=== PATIENT | female | born 1945 | race Hispanic/Latino ===

== ENCOUNTER 2017-12-13 20:05 | Observation (INO) | payer MEDICARE ==
[~2017-12-13] VITALS: Ht 147.3 cm; Wt 75.8 kg
[~2017-12-13 20:05] MED LIST: ASPIRIN325 MG PO; CLOPIDOGREL75 MG PO; DESFLURANE 240 ML BTL INH ONE; DEXAMETHASONE SOD PHOS INJ 4 MG/ML VIAL ONE; EPHEDRINE SULFATE INJ 50 MG/10 ML SYR ONE; LIDOCAINE HCL 2% LOCAL INJ 5 ML SDV VIAL INJ ONE; LISINOPRIL20 MG PO; METOPROLOL SUCC50 MG PO; METOPROLOL TARTRATE INJ 1 MG/ML VIAL ONE; ONDANSETRON HCL INJ 2 MG/ML VIAL ONE; PANTOPRAZOLE SO40 MG PO; PRAVASTATIN SOD20 MG PO; PROPOFOL IV EMULSION 10 MG/ML 20 ML VIAL ONE; Z.0.ALLEGRA ALLERG18; Z.0.COLCRYS0.6 MG PO; Z.0.GEMFIBROZIL600 M; Z.0.LISINOPRIL40 MG; Z.0.NORVASC10 MG PO
--- OUTSIDE RECORDS SUMMARY | 2017-12-13 20:08 | XMS REPORT ---
[facility] Address Unknown Phone Unavailable Care Team Providers Care Garbage Stoker Name Role Phone JULIANNE VALENZUELA Unavailable Unavailable Problems This patient has no known problems. Allergies, Adverse Reactions, Alerts This patient has no known allergies or adverse reactions. Medications This patient has no known medications. Results Test Description Test Time Test Comments Text Results Atomic Results Result Comments CHEST 2 VIEWS [place] [address] Patient Name: MYLENE SHEPPARD MR #: [id number] : 1945 Age/Sex: 72/F Req # : [id number] Adm Physician: Ordered by: JULIANNE VALENZUELA MD Report #: [id number] Location: [place] Room/Bed: Procedure: [id number] DX/CHEST 2 VIEWS Exam Date: 12/12/17 Exam Time: 1115 REPORT STATUS: Signed PROCEDURE: Frontal and lateral views of the chest. COMPARISON: DX, CHEST SINGLE, 07/28/2011, 11:44. DX, CHEST XRAY LINE PLACEMENT, 09/04/2015, 10:20. INDICATIONS: PREOP - RIGHT BREAST FINDINGS: Lines/tubes: None. Lungs: The lungs are well inflated. 2-3 mm nodular density in the right midlung in the frontal view, which was not seen on prior exams. There is no evidence of pneumonia or pulmonary edema. Pleura: Blunting of the left posterior costophrenic sulcus. Heart and mediastinum: The cardiac silhouette is unremarkable. Pulmonary vasculature is normal. Bones: No acute bony abnormality. IMPRESSION: 1. No acute cardiopulmonary abnormalities. 2. 2-3 mm nodular density in the right upper lung. This may represent a calcified granuloma or pulmonary nodule. Recommend chest x-ray, PA and lateral in 3-6 months to document stability. Alternatively, a chest CT may be obtained for further evaluation. 3. Blunting of the left posterior costophrenic sulcus, which may reflect small volume pleural effusion versus pleural thickening. Cathleen Rubin M.D. Dictated by: Cathleen Rubin M.D. on at 12:00 Electronically approved by: Cathleen Rubin M.D. on 12/12/2017 at 12:00 Dictated By: CATHLEEN RUBIN MD 1200 Transcribed By: RALPH on 12/12/17 1200 COPY TO: JULIANNE VALENZUELA MD
[2017-12-13] MEDS ORDERED: ASPIRIN 81 MG CHEW TAB PO ONE (20:15)
[2017-12-13 20:43] LABS: BASOPHILS % 0.5 % (0.0-1.0); EOSINOPHILS # (AUTO) 0.4 (0.0-0.4); EOSINOPHILS % 4.7 % (0.0-6.0); HEMATOCRIT 34.6 % (34.2-44.1); HEMOGLOBIN 10.8 g/dL (12.0-16.0); LYMPHOCYTES # (AUTO) 2.2 (1.0-3.2); LYMPHOCYTES % 27.7 % (18.0-39.1); MEAN CORPUSCULAR HEMOGLOBIN 29.1 pg (28-32); MEAN CORPUSCULAR HGB CONC 31.2 g/dL (31-35); MEAN CORPUSCULAR VOLUME 93.3 fL (81-99); MONOCYTES # (AUTO) 0.7 (0.2-0.8); MONOCYTES % 8.3 % (4.4-11.3); NEUTROPHILS # (AUTO) 4.7 (2.1-6.9); NEUTROPHILS % 58.6 % (38.7-80.0); PLATELET COUNT 160 x10e3/uL (140-360); RED BLOOD COUNT 3.71 x10e6/uL (3.6-5.1); RED CELL DISTRIBUTION WIDTH 15.4 % (11.7-14.4)
[2017-12-13 21:00] LABS: CREATINE KINASE 128 IU/L (29-168)
[2017-12-13 21:02] LABS: ALBUMIN 4.1 g/dL (3.5-5.0); ALBUMIN/GLOBULIN RATIO 1.3 (0.8-2.0); ANION GAP 16.4 mmol/L (8-16); CALCIUM 9.3 mg/dL (8.4-10.2); CREATININE, SERUM 1.69 mg/dL (0.57-1.11); POTASSIUM 5.4 mmol/L (3.5-5.1)
[2017-12-13] MEDS: SODIUM CHLORIDE 0.9% 1000ML 1,000 ML IV SCH (21:56)
[2017-12-13 22:49] VITALS: BP 140/60
[2017-12-13 23:38] VITALS: BP 140/60
[2017-12-13 23:48] VITALS: BP 140/60
[2017-12-14] VITALS (8 sets, daily range): BP systolic 118–159; BP diastolic 57–75
[2017-12-14] MEDS: SODIUM CHLORIDE 0.9% 1000ML 1,000 ML IV SCH (06:27)
[2017-12-14 06:48] LABS: BASOPHILS % 0.4 % (0.0-1.0); EOSINOPHILS # (AUTO) 0.2 (0.0-0.4); EOSINOPHILS % 3.9 % (0.0-6.0); HEMATOCRIT 32.7 % (34.2-44.1); HEMOGLOBIN 10.3 g/dL (12.0-16.0); LYMPHOCYTES # (AUTO) 1.8 (1.0-3.2); LYMPHOCYTES % 33.9 % (18.0-39.1); MEAN CORPUSCULAR HEMOGLOBIN 29.8 pg (28-32); MEAN CORPUSCULAR HGB CONC 31.5 g/dL (31-35); MEAN CORPUSCULAR VOLUME 94.5 fL (81-99); MONOCYTES # (AUTO) 0.5 (0.2-0.8); MONOCYTES % 9.6 % (4.4-11.3); NEUTROPHILS # (AUTO) 2.8 (2.1-6.9); NEUTROPHILS % 51.8 % (38.7-80.0); PLATELET COUNT 145 x10e3/uL (140-360); RED BLOOD COUNT 3.46 x10e6/uL (3.6-5.1); RED CELL DISTRIBUTION WIDTH 15.4 % (11.7-14.4)
[2017-12-14 07:31] LABS: ALBUMIN 3.6 g/dL (3.5-5.0); ALBUMIN/GLOBULIN RATIO 1.3 (0.8-2.0); ANION GAP 13.9 mmol/L (8-16); CALCIUM 9.3 mg/dL (8.4-10.2); CREATININE, SERUM 1.24 mg/dL (0.57-1.11); POTASSIUM 5.9 mmol/L (3.5-5.1)
[2017-12-14] MEDS ORDERED: AMLODIPINE BESYLATE 10 MG TAB PO SCH (09:00)
[2017-12-14] MEDS ORDERED: METOPROLOL TARTRATE 50 MG TAB PO SCH ×2 (09:00→17:00)
[2017-12-14] MEDS ORDERED: SOD POLYSTYRENE SULFONATE SUSP 15 GM/60 ML BTL PO STA (09:52)
[2017-12-14] MEDS ORDERED: SODIUM CHLORIDE 0.45% 1,000 ML IV ONE (10:00)
[2017-12-14] MEDS ORDERED: METOPROLOL TART50 MG PO (10:03)
[2017-12-14 10:12] LABS: CHOL/HDL RATIO 3.2 (3.0-3.6)
--- NOTE | 2017-12-14 10:37 | History and Physical ---
PRIMARY CARE PHYSICIAN: Dr. Randolph ONCOLOGIST: Dr. Ames SURGEON: Dr. Butler CHIEF COMPLAINT: Elevated potassium. HISTORY OF PRESENT ILLNESS: This is a 72-year-old woman recently diagnosed with right-sided breast cancer in October 2017, now planning for resection of the lesion, but sent to the hospital yesterday due to elevated potassium. In the emergency room, the potassium level was 5.4. This morning, it has increased to 5.9. The patient received fluids overnight. Today, the potassium is 5.9. The patient is admitted for further evaluation and management. PAST MEDICAL HISTORY 1. Right-sided breast cancer diagnosed in October 2017. 2. Hypertension. 3. Coronary artery disease, status post stent in 2010. PAST SURGICAL HISTORY: Coronary stenting in 2010. ALLERGIES: PER ELECTRONIC MEDICAL RECORD. FAMILY HISTORY: Brother had prostate cancer. SOCIAL HISTORY: The patient is . She has 3 children. No alcohol, illicits or cigarettes. MEDICATIONS: Per electronic medical record. REVIEW OF SYSTEMS: Denies any dizziness or chest pain. PHYSICAL EXAMINATION VITAL SIGNS: Reviewed. GENERAL: A tired-appearing woman resting in bed. HEENT: Anicteric. CARDIOVASCULAR: Normal S1 and S2. LUNGS: Moderate breath sounds. ABDOMEN: Soft, nontender, nondistended. EXTREMITIES: No edema or calf tenderness. NEUROLOGIC: Alert, appropriate, moving all extremities. SKIN: Dry. PSYCHIATRIC: Normal affect. LABS: Reviewed. MEDICATIONS: Reviewed. ASSESSMENT AND PLAN: A 72-year-old woman. 1. Hyperkalemia. Stop lisinopril. Treat with fluids now. Change fluids to half-normal saline and add some bicarb. Will give 45 g of Kayexalate and check potassium at 2 p.m. 2. Acute kidney injury. Discontinue lisinopril. Start fluids. 3. Right-sided breast cancer. Hold surgery until potassium is corrected. 4. Obesity. Will screen for diabetes. Obtain a lipid panel. 5. Normocytic anemia. Will follow. 6. Metabolic acidosis. Rehydrate. 7. Coronary artery disease. Plavix has been on hold for several days now. We will continue to hold until after surgery. 8. Hypertension. Continue beta wendy. 9. Prophylaxis: Use SCD and PPI. 10. Disposition: Give Kayexalate now. Give fluids. Reassess labs later today. Job#: [id number] MH
[2017-12-14] MEDS: SODIUM BICARBONATE 8.4% SYRING 50 ML in SODIUM CHLORIDE 0.45% 1,000 ML IV SCH (10:43)
[2017-12-14] MEDS: PANTOPRAZOLE SOD 40 MG TABEC PO SCH (10:44)
--- NOTE | 2017-12-14 13:54 | Consultation ---
DATE OF CONSULTATION: December 14, 2017 REFERRING PHYSICIAN: Dr. Dick Smith and Dr. Sammy Ames HISTORY OF PRESENT ILLNESS: Patient is a 72-year-old female known to me. She has carcinoma of the breast. She was to be admitted for surgery to have a mastectomy with sentinel lymph node excision. However, she was found have hyperkalemia. She was admitted to the hospital for treatment of this. Patient has no specific complaints. PAST MEDICAL HISTORY: Significant for carcinoma of the breast, hypertension, coronary artery disease, previous coronary stents. MEDICATIONS AT HOME: Include Norvasc, aspirin, Plavix, colchicine, Prinivil, metoprolol, Protonix and pravastatin. ALLERGIES: SHE HAS NO KNOWN ALLERGIES. SURGERIES: She has had no other surgery besides coronary stents. FAMILY HISTORY: Noncontributory. SOCIAL HISTORY: The patient does not smoke cigarettes or drink alcohol. REVIEW OF SYSTEMS: As stated above. She denies any chest pain or shortness of breath. PHYSICAL EXAMINATION VITALS: Normal. GENERAL: The patient is awake and alert, in no distress. HEENT: No scleral icterus. NECK: No masses. LUNGS: Equal breath sounds are clear bilaterally. CHEST: Right breast has a palpable mass, but no axillary mass. EXTREMITIES: No edema. ABDOMEN: Soft, without tenderness. NEUROLOGIC: Grossly intact. ASSESSMENT: This is a 72-year-old female with carcinoma of the breast with also hyperkalemia. This is being treated with Kayexalate. Tentatively will plan to reschedule her surgery for tomorrow. The procedure has been explained to the patient and her family including risks, benefits and alternatives. They understand the procedure. They have had the opportunity to ask questions. Thank you for asking me to see Ms. Lea. Job#: [id number]
[2017-12-14 16:49] LABS: ANION GAP 13.5 mmol/L (8-16); CALCIUM 9.2 mg/dL (8.4-10.2); CREATININE, SERUM 1.23 mg/dL (0.57-1.11); POTASSIUM 4.5 mmol/L (3.5-5.1)
[2017-12-14] MEDS ORDERED: METOPROLOL SUCCINATE 50 MG TAB XL PO SCH (17:00)
[2017-12-14] MEDS ORDERED: METOPROLOL TARTRATE 25 MG TAB PO SCH (17:00)
[2017-12-14] MEDS ORDERED: METOPROLOL TARTRATE 50 MG PO SCH (17:00)
[2017-12-14] MEDS: METOPROLOL TARTRATE 50 MG TAB PO SCH (17:08)
[2017-12-14] MEDS: PRAVASTATIN 20 MG TAB PO SCH (22:27)
[2017-12-15] VITALS: BP 142/58
[2017-12-15] MEDS: SODIUM BICARBONATE 8.4% SYRING 50 ML in SODIUM CHLORIDE 0.45% 1,000 ML IV SCH ×2 (01:57→23:51)
[2017-12-15 04:00] VITALS: BP 154/57
--- NOTE | 2017-12-15 06:12 | Progress Note ---
DATE: December 15, 2017 TIME: 5:52 a.m. OVERNIGHT: No events. REVIEW OF SYSTEMS: Denies any dizziness. PHYSICAL EXAMINATION VITAL SIGNS: Reviewed. GENERAL: A tired-appearing woman resting in bed. HEENT: Anicteric. CARDIOVASCULAR: Normal S1 and S2. LUNGS: Moderate breath sounds. ABDOMEN: Soft, nontender and nondistended. EXTREMITIES: No edema or calf tenderness. NEUROLOGICAL: Alert and oriented times 3. Moving all extremities. SKIN: Dry. PSYCHIATRIC: Normal affect. LABS: Reviewed. MEDICATIONS: Reviewed. ASSESSMENT: A 72-year-old woman with: 1. Hyperkalemia. 2. Acute kidney injury. 3. Right-sided breast cancer. 4. Obesity. 5. Normocytic anemia. 6. Metabolic acidosis. 7. Coronary artery disease. 8. Hypertension. PLAN 1. Potassium better after receiving Kayexalate and IV fluids. 2. Acute kidney injury, improving. Continue IV fluids. 3. Surgery can proceed today. 4. Follow up labs this morning. However, last night at 10 p.m. potassium was 4.5. 5. Hemoglobin A1c 4.8. The patient does not have diabetes. 6. Triglycerides and LDL are all okay. 7. Metabolic acidosis is improving. 8. Normocytic anemia. Has remained stable. 9. Continue SCD. Continue PPI. Proceed with surgery this morning. Job#: [id number] MIGUEL
[2017-12-15 06:15] LABS: BASOPHILS % 0.4 % (0.0-1.0); EOSINOPHILS # (AUTO) 0.2 (0.0-0.4); EOSINOPHILS % 4.4 % (0.0-6.0); HEMATOCRIT 30.1 % (34.2-44.1); HEMOGLOBIN 9.6 g/dL (12.0-16.0); LYMPHOCYTES # (AUTO) 1.6 (1.0-3.2); LYMPHOCYTES % 31.9 % (18.0-39.1); MEAN CORPUSCULAR HEMOGLOBIN 29.7 pg (28-32); MEAN CORPUSCULAR HGB CONC 31.9 g/dL (31-35); MEAN CORPUSCULAR VOLUME 93.2 fL (81-99); MONOCYTES # (AUTO) 0.5 (0.2-0.8); MONOCYTES % 9.4 % (4.4-11.3); NEUTROPHILS # (AUTO) 2.7 (2.1-6.9); NEUTROPHILS % 53.5 % (38.7-80.0); PLATELET COUNT 137 x10e3/uL (140-360); RED BLOOD COUNT 3.23 x10e6/uL (3.6-5.1); RED CELL DISTRIBUTION WIDTH 15.2 % (11.7-14.4)
[2017-12-15 06:46] LABS: ANION GAP 12.4 mmol/L (8-16); CALCIUM 8.6 mg/dL (8.4-10.2); CREATININE, SERUM 1.02 mg/dL (0.57-1.11); POTASSIUM 4.4 mmol/L (3.5-5.1)
[2017-12-15 08:02] VITALS: BP 150/70
[2017-12-15] MEDS ORDERED: PANTOPRAZOLE SOD 40 MG TABEC PO SCH (09:00)
[2017-12-15] MEDS ORDERED: AMLODIPINE BESYLATE 10 MG TAB PO SCH (09:00)
[2017-12-15] MEDS: METOPROLOL TARTRATE 50 MG TAB PO SCH ×2 (09:00→18:24)
[2017-12-15] MEDS ORDERED: AMLODIPINE 10MG PO SCH (09:00)
[2017-12-15] MEDS: AMLODIPINE BESYLATE 10 MG TAB PO SCH (09:00)
[2017-12-15] MEDS: PANTOPRAZOLE SOD 40 MG TABEC PO SCH (09:00)
[2017-12-15] MEDS ORDERED: FENTANYL CITRATE/PF 100MCG/2 ML INJ ONE (15:01)
[2017-12-15] MEDS ORDERED: MIDAZOLAM HCL 2 MG/2 ML VIAL ONE (15:01)
[2017-12-15] MEDS ORDERED: SODIUM CHLORIDE 0.9% 1000ML 1,000 ML IV SCH (15:06)
[2017-12-15] MEDS ORDERED: MORPHINE SULFATE 4 MG/ML SYR IV PRN (15:15)
[2017-12-15] MEDS ORDERED: MORPHINE SULFATE 2 MG/ML SYR IV PRN (15:15)
[2017-12-15] MEDS ORDERED: ONDANSETRON HCL INJ 2 MG/ML VIAL IV PRN (15:15)
[2017-12-15] MEDS ORDERED: HYDROCODONE/APAP 5MG-325MG TAB PO PRN (15:15)
--- NOTE | 2017-12-15 15:44 | Operative Report ---
DATE OF PROCEDURE: December 15, 2017 PREOPERATIVE DIAGNOSIS: Carcinoma of right breast. POSTOPERATIVE DIAGNOSIS: Carcinoma of right breast. PROCEDURE: Right total mastectomy and right axillary sentinel lymph node excision with lymph node mapping. LODE MINER: None. ANESTHESIA: General endotracheal. INDICATIONS AND FINDINGS: The patient is a 72-year-old female with carcinoma of the right breast who has elected to have a mastectomy. At surgery, there was a palpable mass in the right breast which was removed completely. No gross tumor at the margins of the resection. Three sentinel nodes were excised, all of which were negative for metastatic cancer on pathologic examination. TECHNIQUE: After adequate general anesthesia, with the patient in the supine position, the right breast and axilla were prepped and draped in sterile fashion with [place]on[place] solution. An elliptical incision was made encompassing the nipple-areolar complex and carried down through the subcutaneous tissue. Superiorly, the skin and subcutaneous tissue were dissected away from the underlying breast tissue from the level of the sternum up to the 1st rib and clavicle, laterally to the level of the latissimus dorsi. Inferiorly, also, skin and subcutaneous tissue dissected off the underlying breast tissue from the sternum inferiorly to the rectus abdominis muscle and laterally to the level of the latissimus dorsi muscle. The vessels as they were encountered were controlled with electrocautery. The breast was then dissected off the chest wall taking the fascia of the pectoralis major muscle with the specimen. As it was dissected from medial to lateral, the axilla was entered. Using the Neoprobe, the axilla was examined. Increased activity was identified within the axilla. The nodes with increased activity were excised. They were submitted for frozen section. Pathologic examination did not reveal any metastatic disease. The remaining attachments of the breast to the latissimus dorsi muscle and skin and subcutaneous tissue laterally were divided, and the breast was removed. Hemostasis was achieved with electrocautery. The wound was irrigated with sterile water and inspected for hemostasis, which was seen to be adequate. It was irrigated once again. All fluid aspirated and inspected for hemostasis, which was seen to be adequate. A 19-Malay Joshua drain was then placed beneath the skin flaps through a separate stab wound incision. The wound was then closed with 3-0 Vicryl in the subcutaneous tissue and eduard for the skin. Sterile dressing was applied. Patient tolerated the procedure well. Estimated blood loss was 50 mL. There were no complications. All counts were correct. Patient was taken to the recovery room in satisfactory condition. Job#: [id number]
--- NOTE | 2017-12-15 16:53 | Diagnostic Imaging Report ---
Lymphoscintigraphy Reason for Exam: Right breast cancer; scheduled for sentinel lymph node biopsy Radiopharmaceutical: Tc-99m filtered sulfur colloid 788 microcuries Report: The radiotracer was given as two separate injections intradermally at the edge of the right areola. A single focal area of tracer accumulation is seen in the right axilla. No accumulation of tracer is seen in the midline of the chest or in the neck. Impression: Injection for sentinel lymph node mapping. A single sentinel lymph node is identified in the right axilla. Signed by: Dr. Diana Brumfield M.D. on 12/15/2017 4:49 PM
[2017-12-15 17:02] VITALS: BP 154/64
[2017-12-15] MEDS ORDERED: CEFAZOLIN SOD 1 GM/NS 50ML 50 ML IV SCH (18:00)
[2017-12-15] MEDS: CEFAZOLIN SOD 1 GM VIAL IV SCH ×2 (18:24→23:51)
[2017-12-15 20:00] VITALS: BP 147/78
[2017-12-15] MEDS ORDERED: ONDANSETRON HCL 4 MG ORAL DISINTEGRATING TAB PO PRN (20:45)
[2017-12-15] MEDS: PRAVASTATIN 20 MG TAB PO SCH (21:27)
[2017-12-16] VITALS: BP 139/68
[2017-12-16 04:00] VITALS: BP 149/64
[2017-12-16] MEDS: CEFAZOLIN SOD 1 GM VIAL IV SCH (06:12)
[2017-12-16 07:27] VITALS: BP 141/67
[2017-12-16 07:57] VITALS: BP 141/67
[2017-12-16] MEDS: PANTOPRAZOLE SOD 40 MG TABEC PO SCH (08:03)
[2017-12-16] MEDS: METOPROLOL TARTRATE 50 MG TAB PO SCH (08:03)
[2017-12-16] MEDS: AMLODIPINE BESYLATE 10 MG TAB PO SCH (08:04)
--- NOTE | 2017-12-17 00:07 | Discharge Summary ---
PRINCIPAL DIAGNOSES: 1. Hyperkalemia. 2. Acute kidney injury. 3. Right-sided breast cancer, status post mastectomy and sentinel node resection. 4. Obesity. 5. Normocytic anemia. 6. Metabolic acidosis. 7. Coronary artery disease. SECONDARY DIAGNOSIS: Coronary artery disease. CHIEF COMPLAINT: Right breast cancer requiring resection. HISTORY OF PRESENT ILLNESS: A 72-year-old woman presented for right breast resection. Please refer to the H and P for further details. HOSPITAL COURSE: Patient was found to have hyperkalemia and acute kidney injury with metabolic acidosis, received bicarb, IV fluids, discontinuation of lisinopril. Potassium level improved. She underwent resection for the right breast cancer and also has sentinel node resection on the right axilla. Patient did well. Pain is well controlled. Potassium and renal function are improving. I have encouraged her to increase fluids at home and avoid lisinopril. Patient may resume Plavix in 2 days. Her hemoglobin A1c was 4.8. Triglycerides and LDL were all okay. Patient is currently doing better and currently appropriate for discharge. Will follow up. DISCHARGE MEDICATIONS: Per electronic medical record. FOLLOWUP: With: 1. Primary care doctor in [address] Butler in 1 to [address] Ames in 1 to 2 weeks. DISCHARGE INSTRUCTIONS: Avoid lisinopril. JONATHAN COLIN MD Job#: [id number]
== END 2017-12-16 15:15 | disposition home or self-care (01) ==
LOC: ER 20:05 → ERHOLD 21:58 → IMCU 22:21
PROVIDERS: ADMIT Internal Medicine; ATTEND Internal Medicine
DX: E87.5 Hyperkalemia (principal); C50.811 Malignant neoplasm of overlapping sites of right female breast; N17.9 Acute kidney failure, unspecified; E87.2 Acidosis; I10 Essential (primary) hypertension; D64.9 Anemia, unspecified; K21.9 Gastro-esophageal reflux disease without esophagitis; E66.9 Obesity, unspecified; Z68.34 Body mass index [BMI] 34.0-34.9, adult; E78.00 Pure hypercholesterolemia, unspecified; I25.10 Atherosclerotic heart disease of native coronary artery without angina pectoris; Z17.0 Estrogen receptor positive status [ER+]; Z95.5 Presence of coronary angioplasty implant and graft; I25.2 Old myocardial infarction; Z79.02 Long term (current) use of antithrombotics/antiplatelets; Z79.82 Long term (current) use of aspirin
CPT/HCPCS: 19307; 36415 ×3; 78195; 80048 ×2; 80053 ×2; 80061; 82550; 82553; 82948; 83036; 84132; 84484; 85025 ×3; 88307; 88333; 93005; 99284; A9541; G0378 ×4; J0690 ×2; J1100; J2001; J2250; J2405; J7030 ×2

== ENCOUNTER 2017-12-28 15:17 | Inpatient (IN) | payer MEDICARE ==
[~2017-12-28] VITALS: Ht 147.3 cm; Wt 60.9 kg
[~2017-12-28 15:17] MED LIST changes: -DESFLURANE 240 ML BTL INH ONE; -DEXAMETHASONE SOD PHOS INJ 4 MG/ML VIAL ONE; -EPHEDRINE SULFATE INJ 50 MG/10 ML SYR ONE; -LIDOCAINE HCL 2% LOCAL INJ 5 ML SDV VIAL INJ ONE; +METOPROLOL TART50 MG PO; -METOPROLOL TARTRATE INJ 1 MG/ML VIAL ONE; -ONDANSETRON HCL INJ 2 MG/ML VIAL ONE; -PROPOFOL IV EMULSION 10 MG/ML 20 ML VIAL ONE
--- OUTSIDE RECORDS SUMMARY | 2017-12-28 15:19 | XMS REPORT | Continuity of Care Document ---
Author Author [facility] Organization [facility] Address [address] [place] [address] Phone Unavailable Care Team Providers Care Social Worker Assistant Name Role Phone DWAIN AMATO PCP Insurance Providers Guarantor Mylene Lea Address [address] [place] [address] Email [email or web address] [email or web address] [facility] Policy Number [id number] Subscriber's Name Mylene Lea Relationship 18 Self / Same As Patient Group Name RETIRED Effective Date 17 Advance Directives Directive Response Recorded Date/Time Does the patient have an advance directive? No 12/14/17 12:02am If yes, is advance directive on file with [facility]? No 12/14/17 12:02am If not on file with [facility] will patient provide a copy? No 12/14/17 12:02am Do you have a Directive to Physician? No 12/13/17 8:05pm Do you have a Medical Power of Python Consultant? No 12/13/17 8:05pm Do you have an out of hospital Do Not Resuscitate Order? No 12/13/17 8:05pm Do you have any special needs we should be aware of? No 12/13/17 8:05pm Do you have a support person here with you today? Yes 12/13/17 8:05pm Did patient receive Notice of Privacy Practices? Yes 12/13/17 8:05pm Did patient receive patient rights and responsibilities? Yes 12/13/17 8:05pm Problems Medical Problem Onset Date Status Dehydration Unknown Hyperkalemia Unknown Medications Current Home Medications Medication Dose Units Route Directions Days Qty Instructions Start Date Amlodipine Besylate (Norvasc) 10 Mg Tablet 10 Mg Oral Daily Aspirin 325 Mg Tablet 325 Mg Oral Daily 30 Tab Clopidogrel Bisulfate (Clopidogrel) 75 Mg Tablet 75 Mg Oral Daily 30 Tab Colchicine (Colcrys) 0.6 Mg Tablet 0.6 Mg Oral Daily Metoprolol Tartrate 50 Mg Tablet 50 Mg Oral Twice A Day Pantoprazole Sodium (Protonix) 40 Mg Tablet.dr 40 Mg Oral Daily Pravastatin Sodium 20 Mg Tablet 20 Mg Oral Bedtime Past Home Medications Medication Directions Ordered Status Fexofenadine Hcl (Mariam Allergy) 180 Mg Tablet, Daily Discontinued Gemfibrozil 600 Mg Tablet, Daily Discontinued Lisinopril 40 Mg Tablet, Daily Discontinued Metoprolol Succinate 50 Mg Tab.er.24h, 50 Mg Oral Twice A Day Discontinued Social History Social History Problem Response Recorded Date/Time Onset Date Status Hx Psychiatric Problems No 12/14/2017 12:02am Not Applicable Not Applicable Smoking Status Start Date Stop Date Unknown if ever smoked Hospital Discharge Instructions No hospital discharge instruction information available. Plan of Care Discharge Date 12/16/17 3:15pm Disposition HOME, SELF-CARE Instructions/Education Provided Chest Pain - Chest Wall Prescriptions See Medication Section Referrals PCP (Internal Medicine) Order Date: 5-7 Days Entered Date: 12/16/2017 2:30pm (Oncology) Order Date: 5-7 Days Entered Date: 12/16/2017 2:30pm JULIANNE VALENZUELA MD (Surgery) Order Date: 5-7 Days Entered Date: 12/16/2017 3:07pm Address: [address] [place] [id number] Additional Instructions/Education ACTIVITY TOLERETED FOLLOW UP WITH PRIMARY CARE DOCTOR 1-2 WEEKS GO TO NEAR EMERGENCY FOR FEVER GREATER >100.1 NAUESEA, VOMITTING DIARRHEA. RESUME YOUR DIABETIC DIET Functional Status Query Response Date Recorded Assistive Devices None December 13, 2017 11:48pm Ambulation Ability Independent December 13, 2017 11:48pm Toileting Ability Independent December 13, 2017 11:48pm Allergies, Adverse Reactions, Alerts No known allergies. Immunizations No immunization information available. Vital Signs Acute Vital Signs Vital Response Date/Time Temperature (Fahrenheit) 97.9 degrees F (97.6 - 99.5) 12/16/2017 7:57am Pulse Pulse Rate (adult) 70 bpm (60 - 90) 12/16/2017 8:03am Respiratory Rate 18 bpm (12 - 24) 12/16/2017 8:03am Blood Pressure 141/67 mm Hg 12/16/2017 7:57am Height 4 ft 10 in 12/13/2017 10:48pm Weight 167.13 lb 12/16/2017 1:18am Body Mass Index 34.9 kg/m^2 12/16/2017 1:18am Results Laboratory Results Test Name Result Units Flags Reference Collection Date/Time Result Date/ Time Comments White Blood Count 5.01 x10e3/uL 4.8-10.8 12/15/2017 6:05am 12/15/2017 6 :24am Red Blood Count 3.23 x10e6/uL L 3.6-5.1 12/15/2017 6:05am 12/15/2017 6: 24am Hemoglobin 9.6 g/dL L 12.0-16.0 12/15/2017 6:05am 12/15/2017 6:24am Hematocrit 30.1 % L 34.2-44.1 12/15/2017 6:05am 12/15/2017 6:24am Mean Corpuscular Volume 93.2 fL 81-99 12/15/2017 6:05am 12/15/2017 6: 24am Mean Corpuscular Hemoglobin 29.7 pg 28-32 12/15/2017 6:05am 12/15/2017 6:24am Mean Corpuscular Hemoglobin Concent 31.9 g/dL 31-35 12/15/2017 6:05am 12/15/2017 6:24am Red Cell Distribution Width 15.2 % H 11.7-14.4 12/15/2017 6:052017 6:24am Platelet Count 137 x10e3/uL L 140-360 12/15/2017 6:12/15/2017 6: 24am Neutrophils (%) (Auto) 53.5 % 38.7-80.0 12/15/2017 6:0512/15/2017 6: 24am Lymphocytes (%) (Auto) 31.9 % 18.0-39.1 12/15/2017 6:12/15/2017 6: 24am Monocytes (%) (Auto) 9.4 % 4.4-11.3 12/15/2017 6:12/15/2017 6: 24am Eosinophils (%) (Auto) 4.4 % 0.0-6.0 12/15/2017 6:12/15/2017 6: 24am Basophils (%) (Auto) 0.4 % 0.0-1.0 12/15/2017 6:12/15/2017 6:24am IM GRANULOCYTES % 0.4 % 0.0-1.0 12/15/2017 6:12/15/2017 6:24am Neutrophils # (Auto) 2.7 2.1-6.9 12/15/2017 6:12/15/2017 6:24am Lymphocytes # (Auto) 1.6 1.0-3.2 12/15/2017 6:12/15/2017 6:24am Monocytes # (Auto) 0.5 0.2-0.8 12/15/2017 6:12/15/2017 6:24am Eosinophils # (Auto) 0.2 0.0-0.4 12/15/2017 6:12/15/2017 6:24am Basophils # (Auto) 0.0 0.0-0.1 12/15/2017 6:12/15/2017 6:24am Absolute Immature Granulocyte (auto 0.02 x10e3/uL 0-0.1 12/15/2017 6: 12/15/2017 6:24am Sodium Level 143 mmol/L 136-145 12/15/2017 6:0512/15/2017 6:55am Potassium Level 4.4 mmol/L 3.5-5.1 12/15/2017 6:12/15/2017 6:55am Chloride Level 113 mmol/L H 98-107 12/15/2017 6:05am 12/15/2017 6:55am Carbon Dioxide Level 22 mmol/L 22-29 12/15/2017 6:0512/15/2017 6: 55am Anion Gap 12.4 mmol/L 8-16 12/15/2017 6:05am 12/15/2017 6:55am Blood Urea Nitrogen 26 mg/dL 7-26 12/15/2017 6:0512/15/2017 6:55am Creatinine 1.02 mg/dL 0.57-1.11 12/15/2017 6:0512/15/2017 6:55am BUN/Creatinine Ratio 25 6-25 12/15/2017 6:0512/15/2017 6:55am Estimat Glomerular Filtration Rate 53 ML/MIN L 60- 12/15/2017 6:05 6:55am Ranges were taken from the National Kidney Disease Education Program and the National Kidney Foundation literature. Reference ranges: 60 or greater: Normal 16-59 (for 3 consecutive months): Chronic kidney disease 15 or less: Kidney failure Glucose Level 84 mg/dL 74-118 12/15/2017 6:0512/15/2017 6:55am Calcium Level 8.6 mg/dL 8.4-10.2 12/15/2017 6:0512/15/2017 6:55am Bedside Glucose 89 mg/dL 70-120 12/14/2017 8:13pm 12/14/2017 10:07pm Meter ID: [id number] Hemoglobin A1c Percent 4.8 % 4.0-7.0 12/14/2017 6:0512/14/2017 10: 10am Total Bilirubin 0.3 mg/dL 0.2-1.2 12/14/2017 6:0512/14/2017 7:34am Aspartate Amino Transf (AST/SGOT) 17 IU/L 5-34 12/14/2017 6:052017 7:34am Alanine Aminotransferase (ALT/SGPT) 12 IU/L 0-55 12/14/2017 6:05 7:34am Total Protein 6.3 g/dL L 6.5-8.1 12/14/2017 6:05am 12/14/2017 7:34am Albumin 3.6 g/dL 3.5-5.0 12/14/2017 6:05am 12/14/2017 7:34am Globulin 2.7 g/dL 2.3-3.5 12/14/2017 6:05am 12/14/2017 7:34am Albumin/Globulin Ratio 1.3 0.8-2.0 12/14/2017 6:05am 12/14/2017 7: 34am Alkaline Phosphatase 94 IU/L 40-150 12/14/2017 6:05am 12/14/2017 7: 34am Triglycerides Level 97 MG/DL 0-149 12/14/2017 6:05am 12/14/2017 10: 13am Cholesterol Level 121 MD/DL 0-199 12/14/2017 6:05am 12/14/2017 10:13am Less than 200 mg/dL Low Risk 201 - 239 mg/dL Borderline Risk 240 mg/dl and greater High Risk LDL Cholesterol 64 MG/DL 60-130 12/14/2017 6:05am 12/14/2017 10:13am HDL Cholesterol 38 MG/DL L 40-60 12/14/2017 6:05am 12/14/2017 10:13am Cholesterol/HDL Ratio 3.2 3.0-3.6 12/14/2017 6:05am 12/14/2017 10: 13am Creatine Kinase 128 IU/L 29-168 12/13/2017 8:27pm 12/13/2017 9:03pm Creatine Kinase MB 2.10 ng/mL 0-5.0 12/13/2017 8:27pm 12/13/2017 9: 09pm Troponin I < 0.001 ng/mL 0-0.300 12/13/2017 8:27pm 12/13/2017 9:09pm Procedures Procedure Status Date Provider(s) Simple mastectomy of right breast Completed 12/15/17 JULIANNE VALENZUELA MD Encounters Encounter Location Arrival/Admit Date Discharge/Depart Date Attending Provider Discharged Inpatient (obs) [facility] 12/13/17 9:58pm 3:15pm JONATHAN COLIN MD
[2017-12-28] MEDS ORDERED: SODIUM CHLORIDE 0.9% 1000ML 1,000 ML IV SCH (15:45)
[2017-12-28] MEDS ORDERED: ACETAMINOPHEN 1000 MG/100 ML IV STA (15:45)
[2017-12-28 15:53] LABS: BASOPHILS % 0.2 % (0.0-1.0); EOSINOPHILS % 0.1 % (0.0-6.0); HEMATOCRIT 34.2 % (34.2-44.1); LYMPHOCYTES # (AUTO) 0.6 (1.0-3.2); LYMPHOCYTES % 3.5 % (18.0-39.1); MEAN CORPUSCULAR HEMOGLOBIN 29.4 pg (28-32); MEAN CORPUSCULAR HGB CONC 32.2 g/dL (31-35); MEAN CORPUSCULAR VOLUME 91.4 fL (81-99); MONOCYTES # (AUTO) 1.1 (0.2-0.8); MONOCYTES % 6.6 % (4.4-11.3); NEUTROPHILS # (AUTO) 15.4 (2.1-6.9); NEUTROPHILS % 89.1 % (38.7-80.0); PLATELET COUNT 216 x10e3/uL (140-360); RED BLOOD COUNT 3.74 x10e6/uL (3.6-5.1); RED CELL DISTRIBUTION WIDTH 14.9 % (11.7-14.4)
[2017-12-28 16:04] LABS: BILIRUBIN,URINE NEGATIVE (NEGATIVE); CLARITY,URINE SL CLOUDY (CLEAR); COLOR,URINE YELLOW (YELLOW); KETONES,URINE NEGATIVE (NEGATIVE); LEUKOCYTE ESTERASE ,URINE TRACE (NEGATIVE); NITRITE,URINE POSITIVE (NEGATIVE); PROTEIN,URINE DIPSTICK NEGATIVE (NEGATIVE); URINE UROBILINOGEN 0.2 mg/dL (0.2 - 1)
[2017-12-28 16:05] LABS: ALBUMIN 3.6 g/dL (3.5-5.0); ALBUMIN/GLOBULIN RATIO 1.1 (0.8-2.0); ANION GAP 15.5 mmol/L (8-16); CALCIUM 9.1 mg/dL (8.4-10.2); CREATININE, SERUM 1.33 mg/dL (0.57-1.11); POTASSIUM 4.5 mmol/L (3.5-5.1)
[2017-12-28 16:14] LABS: BACTERIA,URINE MANY /HPF; EPITHELIAL CELLS,URINE FEW /LPF; MUCUS,URINE FEW (RARE); RBC,URINE 0-5 /HPF (0-5)
[2017-12-28] MEDS ORDERED: ACETAMINOPHEN 325 MG TAB PO PRN (16:45)
--- NOTE | 2017-12-28 17:10 | Consultation ---
DATE OF CONSULTATION: December 28, 2017 REFERRING PHYSICIAN: Dr. Dick Smith. HISTORY OF PRESENT ILLNESS: Patient is a 72-year-old female who had recent surgery by me for carcinoma of the right breast. She had right total mastectomy and sentinel node excision. She was doing well and had no complaints and then developed fever over the last couple of days with some pain along the lateral aspect of her incision. She had a drain in place, and this was removed about 1 week ago. She has not noticed any significant new swelling in the area. However, she did have fever up to 103 while in the emergency room. PAST MEDICAL HISTORY: Significant for hypertension, hyperlipidemia, coronary artery disease, previous coronary stent. MEDICATIONS AT HOME: Norvasc, aspirin, Plavix, colchicine, metoprolol, Protonix and pravastatin. ALLERGIES: SHE HAS NO KNOWN ALLERGIES. FAMILY HISTORY: Noncontributory. SOCIAL HISTORY: Noncontributory. REVIEW OF SYSTEMS: As stated above. Otherwise, was negative. She has had fever and some slight lightheadedness. PHYSICAL EXAMINATION VITALS: Temperature 103.1 and heart rate 120. GENERAL: The patient is awake and alert. HEENT: No scleral icterus. NECK: No masses. LUNGS: Equal breath sounds are clear. CHEST: The right chest wound for the mastectomy shows some erythema along with eduard. There is some warmth. There may be a small amount of fluid beneath the incision. There is a small area of skin necrosis at the edge. ABDOMEN: Soft. No tenderness. EXTREMITIES: No edema. NEUROLOGIC: Exam is grossly intact. LABORATORY TESTS: White blood cell count is 17.2. ASSESSMENT: A 72-year-old female with fever. May have some mild cellulitis of her wound. This may be the cause of the fever. I agree with admitting her to the hospital and starting her on IV antibiotics. Thank you for asking me to see Ms. Lea. Job#: [id number]
--- NOTE | 2017-12-28 17:12 | Diagnostic Imaging Report ---
PROCEDURE: A single AP view of the chest. COMPARISON: Patients [facility], DX, CHEST 2 VIEWS, 12/12/2017, 11:17. INDICATIONS: FEVER, CHEST PAIN FINDINGS: Lines/tubes: None. Lungs: The lungs are well inflated. Stable 2-3 mm nodular density in the right midlung on the frontal view. There is no evidence of pneumonia or pulmonary edema. Pleura: There is no pleural effusion or pneumothorax. Heart and mediastinum: Particular, is unremarkable. Pulmonary vasculature is normal. Bones: No acute bony abnormality. IMPRESSION: 1. No acute cardiopulmonary abnormalities. 2. Stable 2-3 mm nodular density in the right upper lung. Recommend chest PA and lateral in 3-6 months to document stability. Aaron Rubin M.D. Dictated by: aAron Rubin M.D. on 12/28/2017 at 17:15 Electronically approved by: Aaron Rubin M.D. on 12/28/2017 at 17:15
[2017-12-28] MEDS ORDERED: TYLENOL WITH C1 EACH PO (19:21)
[2017-12-28] MEDS ORDERED: LISINOPRIL10 MG PO (19:21)
[2017-12-28] MEDS: CEFTRIAXONE SOD 1 GM VIAL IV SCH (20:14)
[2017-12-28] MEDS: SODIUM CHLORIDE 0.9% 1000ML 1,000 ML IV SCH (20:22)
[2017-12-28] MEDS: VANCOMYCIN 1GM/NS 250 ML 250 ML IV SCH ×2 (20:23→21:01)
[2017-12-28 20:59] VITALS: BP 132/61
[2017-12-28 21:00] VITALS: BP 129/64
[2017-12-28 21:53] VITALS: BP 129/64
[2017-12-28] MEDS: ACETAMINOPHEN/CODEINE 300MG - 30MG TAB PO PRN (21:58)
[2017-12-29] VITALS (20 sets, daily range): BP systolic 95–174; BP diastolic 38–78
[2017-12-29] MEDS: ACETAMINOPHEN/CODEINE 300MG - 30MG TAB PO PRN ×3 (01:59→20:27)
[2017-12-29] MEDS ORDERED: ALLOPURINOL300 MG PO (03:14)
[2017-12-29] MEDS: CEFTRIAXONE SOD 1 GM VIAL IV SCH ×2 (04:16→17:14)
[2017-12-29 05:14] LABS: BASOPHILS % 0.2 % (0.0-1.0); EOSINOPHILS % 0.2 % (0.0-6.0); HEMATOCRIT 30.1 % (34.2-44.1); HEMOGLOBIN 9.5 g/dL (12.0-16.0); LYMPHOCYTES # (AUTO) 1.4 (1.0-3.2); LYMPHOCYTES % 8.7 % (18.0-39.1); MEAN CORPUSCULAR HEMOGLOBIN 29.1 pg (28-32); MEAN CORPUSCULAR HGB CONC 31.6 g/dL (31-35); MEAN CORPUSCULAR VOLUME 92.3 fL (81-99); MONOCYTES # (AUTO) 1.4 (0.2-0.8); NEUTROPHILS # (AUTO) 12.7 (2.1-6.9); NEUTROPHILS % 81.4 % (38.7-80.0); PLATELET COUNT 182 x10e3/uL (140-360); RED BLOOD COUNT 3.26 x10e6/uL (3.6-5.1)
[2017-12-29 05:32] LABS: ANION GAP 13.3 mmol/L (8-16); CALCIUM 8.6 mg/dL (8.4-10.2); CREATININE, SERUM 0.99 mg/dL (0.57-1.11); POTASSIUM 4.3 mmol/L (3.5-5.1)
--- NOTE | 2017-12-29 09:07 | History and Physical ---
PRIMARY CARE PHYSICIAN: Dr. Randolph CHIEF COMPLAINT: Fever of 103 with fatigue and rigors. HISTORY OF PRESENT ILLNESS: This is a 72-year-old woman recently discharged after a right-sided mastectomy, now developing fever of 103 at home with weakness, fatigue and rigors. Therefore, she was brought to the hospital by her family. Here, she was found to be septic. She was admitted for further evaluation and management. PAST MEDICAL HISTORY 1. Right-sided breast cancer diagnosed in October 2017, status post right-sided mastectomy in November 2017. 2. Hypertension. 3. Coronary artery disease, status post stent in 2010. PAST SURGICAL HISTORY 1. Right mastectomy in November 2017. 2. Coronary artery stenting in 2010. ALLERGIES: PER ELECTRONIC MEDICAL RECORD. FAMILY HISTORY: Brother had prostate cancer. SOCIAL HISTORY: The patient is . She has 3 children. No alcohol, illicits or cigarettes. MEDICATIONS: Per electronic medical record. REVIEW OF SYSTEMS: Denies any dizziness. VITAL SIGNS: Have been reviewed. PHYSICAL EXAMINATION GENERAL: A tired-appearing woman resting in bed. HEENT: Anicteric. Pupils are responsive to light. No oral lesions. CARDIOVASCULAR: Normal S1 and S2. LUNGS: Moderate breath sounds. ABDOMEN: Soft, nontender, nondistended. EXTREMITIES: No edema or calf tenderness. NEUROLOGIC: Alert, awake, appropriate. MUSCULOSKELETAL: She has right-sided breast site with eduard in place, clean and dry. No surrounding erythema. Minimally tender. SKIN: Dry. PSYCHIATRIC: Flat affect. LABS: Reviewed. MEDICATIONS: Reviewed. ASSESSMENT: A 72-year-old woman. 1. Sepsis. 2. Acute kidney injury. 3. Urinary tract infection. 4. Normocytic anemia. 5. Right breast cancer, status post right-sided mastectomy a few weeks ago. 6. Coronary artery disease. 7. Right-sided lung nodule. 8. Obesity. PLAN 1. Continue broad-spectrum antibiotics consisting of vancomycin and ceftriaxone. 2. Follow up cultures. 3. Rehydrate the patient. 4. Monitor closely. 5. SCDs for prophylaxis and Pepcid. Job#: [id number]
[2017-12-29] MEDS: SODIUM CHLORIDE 0.9% 1000ML 1,000 ML IV SCH ×4 (09:12→22:17)
[2017-12-29] MEDS: VANCOMYCIN 1GM/NS 250 ML 250 ML IV SCH ×2 (09:17→22:09)
[2017-12-29] MEDS: METOPROLOL TARTRATE 50 MG TAB PO SCH (20:26)
[2017-12-29] MEDS ORDERED: ALLOPURINOL 300 MG TAB PO PRN (22:00)
[2017-12-30] VITALS (7 sets, daily range): BP systolic 147–168; BP diastolic 67–71
[2017-12-30] MEDS: CEFTRIAXONE SOD 1 GM VIAL IV SCH ×2 (05:10→17:17)
[2017-12-30] MEDS: SODIUM CHLORIDE 0.9% 1000ML 1,000 ML IV SCH ×2 (08:33→18:41)
[2017-12-30] MEDS: AMLODIPINE BESYLATE 10 MG TAB PO SCH (08:39)
[2017-12-30] MEDS: ASPIRIN 325 MG TAB PO SCH (08:39)
[2017-12-30] MEDS: PANTOPRAZOLE SOD 40 MG TABEC PO SCH (08:39)
[2017-12-30] MEDS: COLCHICINE 0.6 MG TAB PO SCH (08:39)
[2017-12-30] MEDS: VANCOMYCIN 1GM/NS 250 ML 250 ML IV SCH ×2 (08:39→20:29)
[2017-12-30] MEDS: PRAVASTATIN 20 MG TAB PO SCH (08:40)
[2017-12-30] MEDS: CLOPIDOGREL BISULFATE 75 MG TAB PO SCH (08:40)
--- NOTE | 2017-12-30 16:00 | Progress Note ---
DATE: December 30, 2017 TIME: 1300 OVERNIGHT: No acute events. REVIEW OF SYSTEMS: Patient denies shortness of breath, chest pain, nausea, vomiting, diarrhea, or claudication. VITAL SIGNS: T 98.4, P 73, respirations 16, BP 157/69. PHYSICAL EXAMINATION GENERAL APPEARANCE: This is a tired-appearing female sitting supine on bed. HEAD, EYES, EARS, NOSE AND THROAT: Normocephalic, without sinus tenderness. Oral mucosa moist and intact. PERRLA. CV: S1 and S2 without clicks, murmurs or rubs. LUNGS: Bilateral breath sounds. CTA. ABDOMEN: Soft, nontender, nondistended. EXTREMITIES: No edema or calf tenderness. NEUROLOGIC: Alert, awake, appropriate. MUSCULOSKELETAL: Right-sided mastectomy line with eduard in place, well approximated, clean and dry. Minimally tender with slight warmth and without erythema. SKIN: Dry. PSYCHIATRIC: Flat affect. LABS: Prior day's WBC 15.6, H and H 9.5 and 30.1 respectively. Prior chemistries: Na 140, K 4.3, Cl 109, carbon dioxide 22, gap 13.3, BUN 19, creatinine 0.99. MEDICATIONS 1. Plavix 75 mg p.o. daily. 2. Protonix 40 mg a.c. breakfast. 3. Colchicine 0.6 mg daily. 4. Aspirin 325 mg daily. 5. Amlodipine 10 mg p.o. daily. 6. Vancomycin q.12 h. 7. NS at 80 mL per hour. 8. Rocephin 1 g IV q.12. 9. P.R.N. Tylenol No. 3. 10. Metoprolol 50 mg p.o. b.i.d. 11. Allopurinol 30 mg q.4 h. p.r.n. 12. Acetaminophen 650 mg q.6 h. p.r.n. ASSESSMENT AND PLAN: This is a 72-year-old woman with: 1. Sepsis with acute kidney injury. Will follow up values in a.m. 2. Urinary tract infection. Patient with vancomycin times 4 doses thus far. UA with multiple bacteria and trace leukocyte esterase. However, sensitivity will be recollected today. 3. Normocytic anemia. 4. Right breast cancer, status post right-sided mastectomy times a few weeks. 5. Surgical consult completed and cleared for discharge per surgery and RN reports. 6. Coronary artery disease. 7. Right-sided lung nodule. 8. Obesity. 9. Prophylaxis: Protonix, ambulation ad joseph. 10. Disposition: Will continue IV vancomycin and Rocephin times 2 more doses. Obtain white count in a.m. to ensure continuing downward trend in addition to collecting urine culture. Anticipate discharge in a.m. Dictated by Mario Edwards NP. Job#: [id number]
[2017-12-30] MEDS: METOPROLOL TARTRATE 50 MG TAB PO SCH (17:18)
[2017-12-30] MEDS ORDERED: BACTRIM DS TAB1 EACH PO (20:17)
[2017-12-31 00:17] VITALS: BP 145/65
[2017-12-31] MEDS: SODIUM CHLORIDE 0.9% 1000ML 1,000 ML IV SCH ×2 (03:40→04:32)
[2017-12-31] MEDS: CEFTRIAXONE SOD 1 GM VIAL IV SCH (04:32)
[2017-12-31 05:47] VITALS: BP 152/68
[2017-12-31 07:00] VITALS: BP 148/65
[2017-12-31 07:51] VITALS: BP 148/65
[2017-12-31] MEDS: PANTOPRAZOLE SOD 40 MG TABEC PO SCH (07:54)
[2017-12-31 07:55] LABS: BASOPHILS % 0.2 % (0.0-1.0); EOSINOPHILS # (AUTO) 0.2 (0.0-0.4); EOSINOPHILS % 1.8 % (0.0-6.0); HEMATOCRIT 32.8 % (34.2-44.1); HEMOGLOBIN 10.3 g/dL (12.0-16.0); LYMPHOCYTES # (AUTO) 1.4 (1.0-3.2); LYMPHOCYTES % 14.3 % (18.0-39.1); MEAN CORPUSCULAR HGB CONC 31.4 g/dL (31-35); MEAN CORPUSCULAR VOLUME 92.4 fL (81-99); MONOCYTES # (AUTO) 0.8 (0.2-0.8); MONOCYTES % 8.3 % (4.4-11.3); NEUTROPHILS # (AUTO) 7.4 (2.1-6.9); PLATELET COUNT 199 x10e3/uL (140-360); RED BLOOD COUNT 3.55 x10e6/uL (3.6-5.1); RED CELL DISTRIBUTION WIDTH 14.9 % (11.7-14.4)
[2017-12-31] MEDS: ASPIRIN 325 MG TAB PO SCH (08:16)
[2017-12-31] MEDS: COLCHICINE 0.6 MG TAB PO SCH (08:16)
[2017-12-31] MEDS: AMLODIPINE BESYLATE 10 MG TAB PO SCH (08:17)
[2017-12-31] MEDS: METOPROLOL TARTRATE 50 MG TAB PO SCH (08:17)
[2017-12-31] MEDS: PRAVASTATIN 20 MG TAB PO SCH (08:18)
[2017-12-31] MEDS: CLOPIDOGREL BISULFATE 75 MG TAB PO SCH (08:18)
[2017-12-31 08:21] LABS: ALANINE AMINOTRANSFERASE 20 IU/L (0-55); ALBUMIN 2.7 g/dL (3.5-5.0); ALBUMIN/GLOBULIN RATIO 0.8 (0.8-2.0); ALKALINE PHOSPHATASE 136 IU/L (40-150); ANION GAP 12.4 mmol/L (8-16); BLOOD UREA NITROGEN 11 mg/dL (7-26); BUN/CREATININE RATIO 13 (6-25); CALCIUM 8.7 mg/dL (8.4-10.2); CARBON DIOXIDE 21 mmol/L (22-29); CHLORIDE 114 mmol/L (98-107); CREATININE, SERUM 0.84 mg/dL (0.57-1.11); EST GLOMERULAR FILTRATION RATE > 60 ML/MIN (60-); GLUCOSE 90 mg/dL (74-118); POTASSIUM 3.4 mmol/L (3.5-5.1); SODIUM 144 mmol/L (136-145)
[2017-12-31] MEDS ORDERED: POTASSIUM CHLORIDE 10 MEQ TABCR PO NR (08:45)
[2017-12-31] MEDS: VANCOMYCIN 1GM/NS 250 ML 250 ML IV SCH (08:50)
[2017-12-31] MEDS ORDERED: SULFAMETHOXAZO1 EAC1 PO (09:49)
--- NOTE | 2018-01-01 06:34 | Discharge Summary ---
PRINCIPAL DIAGNOSES 1. Sepsis with acute kidney injury. 2. Urinary tract infection. 3. Normocytic anemia. 4. Right breast cancer, status post mastectomy. 5. Coronary artery disease. 6. Right-sided lung nodule. 7. Obesity. SECONDARY DIAGNOSES 1. Right-sided breast cancer, status post mastectomy in November 2017. 2. Hypertension. 3. Coronary artery disease with stent placement in 2010. SURGICAL HISTORY 1. Mastectomy in November 2017. 2. CAD with stent in 2010. CHIEF COMPLAINT: Fever, weakness, fatigue, and rigors. HISTORY OF PRESENT ILLNESS: Patient is status post right mastectomy times several weeks. Per interview, the patient had a sudden onset of fever on December 28, 2017, with a temp of 103, and inability to walk due to leg weakness, extreme fatigue, and shaking. The patient was brought that day to the emergency room where she was found to be septic. The patient was admitted. HOSPITAL COURSE: The patient presented to the emergency room on December 28, 2017, and was admitted to the medical/surgical floor. The patient was seen by surgical services and provided pain management on that day. Treatment for the UTI and sepsis were initiated ongoing over the next 2 days where on December 30, 2017, the patient was cleared from surgical perspective with antibiotic prescription for the possibility of cellulitis to the surgical site. However, the patient did continue with IV antibiotic treatment for the UTI present with trace leukocyte esterase and multiple bacteria in the initial urine culture. Sensitivity was not obtained upon presentation. Thus, sensitivity was obtained on December 30, 2017, and sent for analysis. On December 31, 2017, the patient was noted to have supratherapeutic vancomycin levels at which time that medication was held. The patient received Rocephin on the a.m. of December 31, 2017. The patient and family were without complaints, concerns or questions. The patient was discharged this a.m. MEDICATIONS: The patient was discharged to continue her home medications, which include: 1. Allopurinol 300 mg q.4 h. p.r.n. pain. 2. Norvasc 10 mg daily. 3. Aspirin 325 mg daily. 4. Plavix 75 mg daily. 5. Colcrys 0.6 mg daily. 6. Metoprolol 50 mg twice a day. 7. Protonix 40 mg tablet daily. 8. Pravastatin 20 mg p.o. daily. 9. In addition, the patient was provided with a prescription for clindamycin per surgical services. 10. Double strength Bactrim twice a day for 3 days to complete uncomplicated cystitis/UTI treatment. FOLLOWUP: The patient was instructed to contact PCP, Dr. Miguelito Randolph, upon arrival home to obtain an appointment with him in 5-7 days, as well as contacting surgical services for followup as previously arranged. CONDITION ON DISCHARGE: The patient left the facility in a wheelchair with family in attendance in stable condition. The patient and family denied all needs and voiced no complaints. DICTATED BY XIOMY TIM NP JONATHAN COLIN MD Job#: [id number] MIGUEL
== END 2017-12-31 10:17 | disposition home or self-care (01) | DRG 862 ==
LOC: ER 15:17 → ERHOLD 17:05 → ICU 20:31 → MED/SURG3 12-29 21:14
PROVIDERS: ADMIT Internal Medicine; ATTEND Internal Medicine
DX: T81.4XXA Infection following a procedure, initial encounter (principal); A41.9 Sepsis, unspecified organism; R65.20 Severe sepsis without septic shock; L03.313 Cellulitis of chest wall; N17.9 Acute kidney failure, unspecified; N30.00 Acute cystitis without hematuria; R53.1 Weakness; Z90.11 Acquired absence of right breast and nipple; I25.10 Atherosclerotic heart disease of native coronary artery without angina pectoris; Z95.5 Presence of coronary angioplasty implant and graft; Z80.42 Family history of malignant neoplasm of prostate; D64.9 Anemia, unspecified; R91.1 Solitary pulmonary nodule; E66.9 Obesity, unspecified; I10 Essential (primary) hypertension; E78.5 Hyperlipidemia, unspecified; N61.0 Mastitis without abscess; Z68.28 Body mass index [BMI] 28.0-28.9, adult
CPT/HCPCS: 36415; 71045; 80048; 80053; 80202; 81001; 82948; 83605; 85025; 87040; 87086; 96361; 96367; 99284; J0696; J3370; J7030

== ENCOUNTER 2018-01-12 17:30 | Emergency (ER) | payer MEDICARE ==
[~2018-01-12] VITALS: Ht 147.3 cm; Wt 60.8 kg
[~2018-01-12 17:30] MED LIST changes: +ALLOPURINOL300 MG PO; +BACTRIM DS TAB1 EACH PO; +LISINOPRIL10 MG PO; +SULFAMETHOXAZO1 EAC1 PO; +TYLENOL WITH C1 EACH PO
[2018-01-12 18:06] LABS: BASOPHILS # (AUTO) 0.1 (0.0-0.1); BASOPHILS % 0.6 % (0.0-1.0); EOSINOPHILS # (AUTO) 0.3 (0.0-0.4); EOSINOPHILS % 3.4 % (0.0-6.0); HEMATOCRIT 30.5 % (34.2-44.1); HEMOGLOBIN 9.6 g/dL (12.0-16.0); LYMPHOCYTES # (AUTO) 1.6 (1.0-3.2); MEAN CORPUSCULAR HGB CONC 31.5 g/dL (31-35); MEAN CORPUSCULAR VOLUME 92.1 fL (81-99); MONOCYTES # (AUTO) 0.6 (0.2-0.8); MONOCYTES % 6.9 % (4.4-11.3); NEUTROPHILS # (AUTO) 5.9 (2.1-6.9); NEUTROPHILS % 69.5 % (38.7-80.0); PLATELET COUNT 326 x10e3/uL (140-360); RED BLOOD COUNT 3.31 x10e6/uL (3.6-5.1); RED CELL DISTRIBUTION WIDTH 15.6 % (11.7-14.4)
[2018-01-12] MEDS ORDERED: COLCRYS0.6 MG PO (18:12)
[2018-01-12 18:25] LABS: ALBUMIN 3.4 g/dL (3.5-5.0); ALBUMIN/GLOBULIN RATIO 0.9 (0.8-2.0); ANION GAP 14.6 mmol/L (8-16); CALCIUM 9.2 mg/dL (8.4-10.2); CREATININE, SERUM 1.54 mg/dL (0.57-1.11)
[2018-01-12 18:27] LABS: POTASSIUM 5.6 mmol/L (3.5-5.1)
[2018-01-12] MEDS ORDERED: SOD POLYSTYRENE SULFONATE SUSP 15 GM/60 ML BTL PO ONE (18:45)
== END 2018-01-12 18:57 | disposition home or self-care (01) ==
LOC: ER 17:30
DX: E87.5 Hyperkalemia (principal); I10 Essential (primary) hypertension; E78.5 Hyperlipidemia, unspecified; Z85.3 Personal history of malignant neoplasm of breast
CPT/HCPCS: 36415; 80053; 85025; 93005; 99283

== ENCOUNTER → 2018-01-15 | Day surgery (SDC) | payer MEDICARE ==
[2018-01-12 11:09] LABS: BASOPHILS # (AUTO) 0.1 (0.0-0.1); BASOPHILS % 0.6 % (0.0-1.0); EOSINOPHILS # (AUTO) 0.3 (0.0-0.4); EOSINOPHILS % 3.2 % (0.0-6.0); HEMATOCRIT 31.3 % (34.2-44.1); HEMOGLOBIN 9.5 g/dL (12.0-16.0); LYMPHOCYTES % 21.8 % (18.0-39.1); MEAN CORPUSCULAR HEMOGLOBIN 28.5 pg (28-32); MEAN CORPUSCULAR HGB CONC 30.4 g/dL (31-35); MONOCYTES # (AUTO) 0.9 (0.2-0.8); MONOCYTES % 9.7 % (4.4-11.3); NEUTROPHILS % 64.2 % (38.7-80.0); PLATELET COUNT 307 x10e3/uL (140-360); RED BLOOD COUNT 3.33 x10e6/uL (3.6-5.1); RED CELL DISTRIBUTION WIDTH 15.7 % (11.7-14.4)
--- NOTE | 2018-01-12 11:29 | Diagnostic Imaging Report ---
PROCEDURE: Frontal and lateral views of the chest. COMPARISON: [facility], DX, CHEST SINGLE (PORTABLE), 12/28/2017, 16:16. INDICATIONS: PREOPERATIVE CHEST XRAY FOR MASTECTOMY FINDINGS: Lines/tubes: None. Lungs: 3 mm nodular density projected on the right mid lung laterally is unchanged. There is no evidence of pneumonia or pulmonary edema. Pleura: There is no pneumothorax. Slight blunting of the left lateral costophrenic sulcus may represent pleural thickening or trace effusion. Heart and mediastinum: The heart and the mediastinum are normal. Calcification of aortic arch. Bones: No acute bony abnormality. IMPRESSION: 1. No acute thoracic abnormality. Mason Galdamez M.D. Dictated by: Mason Galdamez M.D. on 01/12/2018 at 11:33 Electronically approved by: Mason Galdamez M.D. on 01/12/2018 at 11:33
[2018-01-12 11:34] LABS: ALBUMIN 3.3 g/dL (3.5-5.0); ALBUMIN/GLOBULIN RATIO 0.9 (0.8-2.0); ANION GAP 14.5 mmol/L (8-16); CALCIUM 9.4 mg/dL (8.4-10.2); CREATININE, SERUM 1.5 mg/dL (0.57-1.11)
[2018-01-12 11:38] LABS: POTASSIUM 6.5 mmol/L (3.5-5.1)
[~2018-01-15] MED LIST changes: +BUPIVACAINE HCL 0.5% INJ 30 ML VIAL INJ ONE; +COLCRYS0.6 MG PO; +DEXAMETHASONE SOD PHOS INJ 4 MG/ML VIAL ONE; +EPHEDRINE SULFATE INJ 50 MG/10 ML SYR ONE; +FENTANYL CITRATE/PF 100MCG/2 ML INJ ONE; +LIDOCAINE HCL 1% LOCAL INJ 20 ML VIAL ONE; +LIDOCAINE HCL 2% LOCAL INJ 5 ML SDV VIAL INJ ONE; +MIDAZOLAM HCL 2 MG/2 ML VIAL ONE; +ONDANSETRON HCL INJ 2 MG/ML VIAL ONE; +PROPOFOL IV EMULSION 10 MG/ML 20 ML VIAL ONE; +SEVOFLURANE INHAL SOLN 250 ML PEN BTL ONE; +VANCOMYCIN 1GM/NS 250 ML 250 ML ONE
--- NOTE | 2018-01-15 09:04 | Operative Report ---
DATE OF PROCEDURE: January 15, 2018 PREOPERATIVE DIAGNOSIS: Necrosis, chest wall wound, with chest wall seroma. POSTOPERATIVE DIAGNOSIS: Necrosis, chest wall wound, with chest wall seroma. PROCEDURE: Excisional debridement of necrotic chest wall wound, skin and subcutaneous tissue, 5 square centimeters. Drainage of a chest wall seroma. SYSTEMS TECHNICIAN: None. ANESTHESIA: General. INDICATIONS AND FINDINGS: The patient is a 72-year-old female who previously underwent a right mastectomy. She developed necrosis of the skin edge with underlying seroma. At surgery, some necrotic skin edges were excised. They were about 1 x 5 cm. There was a seroma of the chest wall which contained about 100 mL of serous fluid with some fibrinous exudate. TECHNIQUE: After adequate general anesthesia, with the patient in the supine position, the right chest wall was prepped and draped in a sterile fashion with Betadine solution. Necrotic skin edges were excised using electrocautery back to healthy, bleeding tissue. The area was about 1 x 5 cm. As the skin edges were excised, the seroma was entered. Approximately 100 mL of serous fluid was drained as well as some fibrinous exudate was removed. The underlying tissues all appeared viable. A sample of the seroma was taken for culture and sensitivity. The seroma cavity was irrigated with saline. The wound and seroma cavity were infiltrated with 1/2 percent Marcaine. A 10-mm, flat, Daniel-Crowe drain was placed into the seroma through a separate stab wound incision. The wound was then closed with 3-0 Vicryl in the subcutaneous tissue and eduard for the skin. Sterile dressing was applied. The patient tolerated the procedure well. Estimated blood loss was 5 mL. There were no complications. All counts were correct. Patient was taken to the recovery room in satisfactory condition. Job#: [id number]
== END ==
LOC: OR 05:09
PROVIDERS: ATTEND Surgery
DX: L76.82 Other postprocedural complications of skin and subcutaneous tissue (principal); I96 Gangrene, not elsewhere classified; L76.34 Postprocedural seroma of skin and subcutaneous tissue following other procedure; Y83.8 Other surgical procedures as the cause of abnormal reaction of the patient, or of later complication, without mention of misadventure at the time of the procedure; Z85.3 Personal history of malignant neoplasm of breast; Z90.11 Acquired absence of right breast and nipple; K21.9 Gastro-esophageal reflux disease without esophagitis; I25.10 Atherosclerotic heart disease of native coronary artery without angina pectoris; Z95.5 Presence of coronary angioplasty implant and graft; I25.2 Old myocardial infarction; I10 Essential (primary) hypertension; I73.9 Peripheral vascular disease, unspecified; Z95.820 Peripheral vascular angioplasty status with implants and grafts; Z01.810 Encounter for preprocedural cardiovascular examination; Z01.812 Encounter for preprocedural laboratory examination; Z01.818 Encounter for other preprocedural examination; Z79.02 Long term (current) use of antithrombotics/antiplatelets; Z79.82 Long term (current) use of aspirin
CPT/HCPCS: 10140; 11042; 36415 ×2; 71046; 80053; 84132; 85025; 87071; 87075; 87205; 88304; 93005; J1100; J2001; J2250; J2405; J3370; 88305